=== PATIENT | male | born 1990 | race Two or more races ===

== ENCOUNTER 2019-09-21 12:59 | Emergency (ER) | payer MEDICAID ==
[~2019-09-21] VITALS: Ht 167.6 cm; Wt 86.2 kg
--- NOTE | 2019-09-21 13:12 | NUR ---
Fever x4days Loss of appetite/Food does NOT sit well- Negative COVID test 24 HOURS AGO. TO ER BED 6, HOOKED TO BP MONITOR AND POX, CHANGED TO HOSP GOWN, PATIENT AO x 4, BREATHING EVEN AND UNLABORED. AWAITING MD PILLAI.
--- NOTE | 2019-09-21 13:32 | NUR ---
GABRIEL VEE AT BEDSIDE
--- NOTE | 2019-09-21 13:40 | NUR ---
IV LINE ESTABLISHED, BLOOD DRAWN AND SENT TO LAB.
[2019-09-21] MEDS ORDERED: ONDANSETRON HCL/PF 4 MG/2 ML VIAL ONE (13:46)
[2019-09-21] MEDS ORDERED: LIDOCAINE VISCOUS 2% UD 15 ML UDC ONE (13:46)
[2019-09-21] MEDS ORDERED: MAG HYDROX/AL HYDROX/SIMETH 30 ML UDC ONE (13:46)
[2019-09-21] MEDS ORDERED: FAMOTIDINE/PF INJ 20 MG/2 ML VIAL IV ONE ×2 (13:46→14:00)
[2019-09-21 13:54] LABS: BASOPHILS % (AUTO) 0.6 % (0.0-2.0); EOSINOPHILS % (AUTO) 0.1 % (0.0-6.0); HEMATOCRIT 47 % (39-51); LYMPHOCYTES % (AUTO) 19.3 % (20.0-44.0); MEAN CORPUSCULAR HGB CONC 34 g/dl (31.0-36.0); MEAN CORPUSCULAR VOLUME 89 fL (80-96); MONOCYTES # (AUTO) 0.4 /CMM (0.1-1.30); MONOCYTES % (AUTO) 8.3 % (2.0-12.0); NEUTROPHILS # (AUTO) 3.8 /CMM (1.8-8.9); NEUTROPHILS % (AUTO) 71.7 % (43.0-81.0); PLATELET COUNT (AUTO) 242 /CMM (150-450); RED BLOOD CELL COUNT(AUTO) 5.32 MIL/uL (4.5-6.0); WHITE BLOOD COUNT (AUTO) 5.4 K/uL (4.3-11.0)
[2019-09-21] MEDS ORDERED: IV NS 0.9% 1,000 ML BAG IV ONE (14:00)
[2019-09-21] MEDS ORDERED: MAG HYDROX/AL HYDROX/SIMETH 30 ML UDC PO ONE (14:00)
[2019-09-21] MEDS ORDERED: ONDANSETRON HCL/PF 4 MG/2 ML VIAL IVP ONE (14:00)
[2019-09-21] MEDS ORDERED: LIDOCAINE VISCOUS 2% UD 15 ML UDC MM ONE (14:00)
[2019-09-21 14:05] LABS: BILIRUBIN,DIRECT 0.1 mg/dL (0.0-0.2); BILIRUBIN,TOTAL 0.4 mg/dL (0.2-1.0); CALCIUM, SERUM 8.9 mg/dL (8.5-10.1); CREATININE 0.9 mg/dL (0.6-1.3); POTASSIUM 4.2 mmol/L (3.5-5.1); TOTAL PROTEIN, SERUM 8.2 g/dL (6.4-8.2)
[2019-09-21] MEDS ORDERED: CT SWABBABLE VALVE TRANS SET 1 EA INFUS.SET MC ONE (14:15)
[2019-09-21] MEDS ORDERED: IV NS 0.9% 250 ML IV ONE (14:15)
[2019-09-21] MEDS ORDERED: IOHEXOL-300 100 ML VIAL IV ONE (14:15)
--- NOTE | 2019-09-21 15:18 | NUR ---
IV removed. Catheter intact and site benign. Pressure and 4x4 applied to site. No bleeding noted.Patient discharged to home in stable condition. Written and verbal after care instructions given. Patient verbalizes understanding of instruction.
[2019-09-21 15:19] VITALS: BP 121/68
== END 2019-09-21 15:19 | disposition home or self-care (01) ==
LOC: ER 13:07
DX: R11.10 Vomiting, unspecified (principal); R10.31 Right lower quadrant pain; R50.9 Fever, unspecified; R94.2 Abnormal results of pulmonary function studies
CPT/HCPCS: 36415; 74177; 80048; 80076; 83690; 85025; 85730; 96361; 96374; 96375; 99285; J2405; J3490; J7030; J7050; Q9967